=== PATIENT | female | born 1965 | race Two or more races ===

== ENCOUNTER 2020-09-25 12:27 | Outpatient (CLI) | payer BC | END 2020-09-25 12:28 | disposition home or self-care (01) | LOC: BICMAMMO 12:27 | PROVIDERS: ATTEND Internal Medicine | DX: Z12.31 Encounter for screening mammogram for malignant neoplasm of breast (principal); Z13.820 Encounter for screening for osteoporosis; M85.89 Other specified disorders of bone density and structure, multiple sites | CPT/HCPCS: 77063; 77067; 77080 ==